=== PATIENT | male | born 1995 | race Caucasian/White ===

== ENCOUNTER → 2024-12-01 11:07 | Outpatient (REF) | payer BC, SELFPAY ==
[2024-12-01 15:07] LABS: Hematocrit 48.3 % (39.0-52.0); Hemoglobin 16.7 g/dL (13.0-18.0); Mean Corp Hgb Conc. 34.6 g/dL (33.0-37.0); Mean Corpuscular Volume 83.9 fL (80.0-94.0); Nucleated Red Blood Cells % 0 % (-); Platelet Count 243 10^3/uL (130-400); Red Cell Dist. Width 12.0 % (11.5-14.5)
[2024-12-01 15:21] LABS: ALT (SGPT) 22 U/L (0-50); AST (SGOT) 19 U/L (17-59); Albumin 4.8 g/dl (3.5-5.0); Alkaline Phosphatase 66 U/L (38-126); Blood Urea Nitrogen 16 mg/dl (9-20); Calcium 9.9 mg/dl (8.4-10.2); Carbon Dioxide 30 mmol/L (22-30); Chloride 102 mmol/L (98-107); Glucose 142 mg/dl (70-99); Potassium 4.0 mmol/L (3.5-5.1); Sodium 139 mmol/L (135-145); Total Protein 7.7 g/dl (6.3-8.2); Uric Acid 8.5 mg/dl (3.5-8.5); eGFR > 60.00
[2024-12-01 15:23] LABS: C-Reactive Protein < 5.00 mg/L (0.0-10.00)
[2024-12-01 15:26] LABS: Rheumatoid Agglutinin Less Than 10 IU (<10 IU)
[2024-12-04 00:49] LABS: CCP Antibody IgG/IgA 3 Units (0-19)
[2024-12-04 03:29] LABS: ANA, IgG Reflex to HEp-2 None Detected (None Detected)
== END ==
LOC: HWLAB 11:07
DX: M79.641 Pain in right hand (principal); M79.642 Pain in left hand
CPT/HCPCS: 36415; 73130; 80053; 84550; 85025; 85652; 86038; 86140; 86200; 86430